=== PATIENT | female | born 1995 | race Two or more races ===

== ENCOUNTER → 2018-11-28 | Outpatient (REF) | payer OTHER ==
[2018-11-28 18:09] LABS: HCG, SERUM QUALITATIVE NEGATIVE (NEGATIVE)
[2018-11-28 18:13] LABS: BASO % 0.3 % (0.0-1.0); EOS # 0.1 10^3/uL (0.0-0.50); EOS % 1.4 % (0.0-3.0); HEMATOCRIT 40.6 % (36.0-47.0); LYMPH # 2.5 10^3/uL (1.5-6.5); LYMPH % 32.6 % (24.0-44.0); MEAN CORPUSCULAR HEMOGLOBIN 32.3 pg (27.0-33.0); MEAN CORPUSCULAR HGB CONC 34.5 g/dl (32.0-36.5); MEAN CORPUSCULAR VOLUME 93.8 fl (80.0-96.0); MONO # 0.4 10^3/uL (0.0-0.8); MONO % 5.8 % (0.0-5.0); NEUTROPHILS # 4.6 10^3/uL (1.8-7.7); NEUTROPHILS % 59.6 % (36.0-66.0); PLATELET COUNT, AUTOMATED 328 10^3/uL (150-450); RED BLOOD COUNT 4.33 10^6/uL (4.00-5.40); WHITE BLOOD COUNT 7.6 10^3/uL (4.0-10.0)
[2018-11-28 18:21] LABS: ALBUMIN 3.4 GM/DL (3.2-5.2); ALT/SGPT 21 U/L (12-78); BILIRUBIN,TOTAL 0.3 MG/DL (0.2-1.0); BLOOD UREA NITROGEN 8 MG/DL (7-18); CALCIUM LEVEL 8.7 MG/DL (8.5-10.1); CARBON DIOXIDE LEVEL 27 MEQ/L (21-32); CHLORIDE LEVEL 106 MEQ/L (98-107); CREATININE FOR GFR 0.92 MG/DL (0.55-1.30); FREE T4 1.11 NG/DL (0.76-1.46); GLOMERULAR FILTRATION RATE > 60.0 (>60); GLUCOSE, FASTING 112 MG/DL (70-100); HCG, SERUM QUANTITATIVE < 1.0 MIU/ML; POTASSIUM SERUM 4.1 MEQ/L (3.5-5.1); PROLACTIN 23.9 NG/ML; SODIUM LEVEL 140 MEQ/L (136-145); TOTAL PROTEIN 7.3 GM/DL (6.4-8.2)
== END ==
LOC: M SFHCPLAZ 15:32
PROVIDERS: ATTEND Physician Assistant Medical
DX: N92.0 Excessive and frequent menstruation with regular cycle (principal); N64.52 Nipple discharge; K59.00 Constipation, unspecified

== ENCOUNTER → 2019-04-01 | Outpatient (REF) | payer OTHER ==
[2019-04-01 14:32] LABS: CHLAMYDIA DNA AMPLIFICATION NEGATIVE (NEGATIVE); GC DNA AMPLIFICATION NEGATIVE (NEGATIVE)
== END ==
LOC: M SFHCWAGY 10:11
PROVIDERS: ATTEND Nurse Practitioner Women's Health
DX: Z12.4 Encounter for screening for malignant neoplasm of cervix (principal); Z11.3 Encounter for screening for infections with a predominantly sexual mode of transmission
CPT/HCPCS: 87661; G0123

== ENCOUNTER → 2019-10-09 | Outpatient (CLI) | payer OTHER ==
--- NOTE | 2019-10-09 19:13 | REP ---
Clinical: Pelvic pain. Technique: Transabdominal pelvic ultrasound followed by transvaginal examination for better evaluation of the endometrium and adnexa with color Doppler evaluation of the ovaries. Findings: Bladder is normal and currently measures 10.0 x 6.9 x 8.2 cm. Normal anteverted uterus measures 10.1 x 3.5 x 5.2 cm. Endometrial complex measures 10.0 mm thickness. No discrete uterine or endometrial abnormalities are identified. The bilateral ovaries are normal in vascularity without torsion. Left ovary measures 2.1 x 1.4 x 2.6 cm (RI 0.58) and appears normal. Right ovary measures 5.0 x 3.5 x 4.5 cm (RI 0.52) and includes complex 4.2 x 3.0 x 3.8 cm presumed hemorrhagic cyst. Small amount of free fluid in the pelvis is likely physiologic. Impression: 1. Normal uterus and left ovary. 2. Complex suspected hemorrhagic cyst in the right ovary. Electronically Signed by Eduardo Jeffers MD 10/09/2019 07:05 P
== END ==
LOC: M RAD 08:39
PROVIDERS: ATTEND Physician Assistant Medical
DX: R10.9 Unspecified abdominal pain (principal)

== ENCOUNTER → 2019-12-02 | Outpatient (CLI) | payer OTHER ==
--- NOTE | 2019-12-02 09:03 | REP ---
Clinical: Right ovarian cyst. Follow-up. Comparison: 10/09/2019. Technique: Transabdominal pelvic ultrasound followed by transvaginal examination for better evaluation of the endometrium and adnexa with color Doppler evaluation of the ovaries. Findings: Bladder is collapsed. Normal anteverted uterus measures 7.1 x 3.4 x 4.2 cm. Endometrial complex measures 8 mm thickness. No discrete uterine or endometrial abnormality identified. The bilateral ovaries are normal in appearance and vascularity without torsion. Right ovary measures 2.7 x 2.3 x 2.4 cm (RI 0.45) and without cystic change. Left ovary measures 2.7 x 2.0 x 2.6 cm (RI 0.48) with small physiologic cysts/follicles noted. Small amount of pelvic free fluid likely physiologic and related to menstrual cycle. Impression: 1. Essentially normal uterus / adnexa. Previously noted complex right ovarian cyst has resolved.
== END ==
LOC: M WHC 08:03
PROVIDERS: ATTEND Nurse Practitioner Women's Health
DX: N83.201 Unspecified ovarian cyst, right side (principal)

== ENCOUNTER → 2020-08-06 | Outpatient (REF) | payer OTHER | LOC: M LAB REF 18:59 | PROVIDERS: ATTEND Physician Assistant | DX: Z20.822 Contact with and (suspected) exposure to COVID-19 (principal) ==

== ENCOUNTER → 2021-04-16 | Outpatient (CLI) | payer OTHER ==
[2021-04-16 14:31] LABS: FREE T4 1.15 NG/DL (0.76-1.46); THYROID STIMULATING HORMONE 0.362 uIU/ML (0.358-3.740)
[2021-04-16 16:02] LABS: LUTEINIZING HORMONE 64.8 mIU/mL; PROLACTIN 18.8 NG/ML
[2021-04-16 16:03] LABS: FOLLICLE STIMULATING HORMONE 12.2 mIU/mL
[2021-04-16 16:14] LABS: PROGESTERONE 0.95 NG/ML
== END ==
LOC: M PLALAB 11:06
PROVIDERS: ATTEND Specialist
DX: N92.6 Irregular menstruation, unspecified (principal)
CPT/HCPCS: 36415; 83001; 83002; 84144; 84146; 84439; 84443; G0463